=== PATIENT | male | born 1945 | race Caucasian/White ===

== ENCOUNTER 2016-09-13 06:28 | Day surgery (SDC) | payer BC ==
[2016-09-08 17:35] LABS: HEMATOCRIT 45.8 % (40.0-51.0); HEMOGLOBIN 15.6 g/dL (13.6-17.8)
[2016-09-08 17:45] LABS: A/G RATIO 1.2 (0.7-1.9); ALBUMIN 3.8 G/DL (3.5-5.0); BUN (BLOOD UREA NITROGEN) 14 MG/DL (6-23); CALCIUM, SERUM 8.7 MG/DL (8.5-10.4); CHLORIDE, SERUM 104 MMOL/L (96-112); CO2 (CARBON DIOXIDE) 31 MMOL/L (24-34); CREATININE 1.27 MG/DL (0.70-1.30); GFR AFRICAN AMERICAN 66 ML/MIN (>=60); GFR NON AFRICAN AMERICAN 57 ML/MIN (>=60); GLOBULIN 3.3 G/DL (2.5-4.1); GLUCOSE, SERUM 102 MG/DL (60-99); POTASSIUM, SERUM 4.2 MMOL/L (3.5-5.3); SGOT(AST) 19 U/L (5-40); SGPT(ALT) 24 U/L (5-65); SODIUM, SERUM 142 MMOL/L (135-148); TOTAL BILIRUBIN 0.4 MG/DL (0-1.2); TOTAL PROTEIN 7.1 G/DL (6.0-8.5)
[2016-09-08 17:46] LABS: ALKALINE PHOSPHATASE 85 U/L (45-117)
--- NOTE | ~2016-09-13 | OP ---
Record Of Operation [facility] [address] [place]. [address] NAME: ALEXANDRO BELCHER : 49 STATUS : [facility]#: [id number] AGE: 71 ADM/REG DATE : 09/13/16 MR#: [id number] REPORT SERV DATE: 09/13/16 DICTATED BY: OSWALDO REICH DATE: 09/13/16 REPORT STATUS : Draft TRANSCRIBED BY: MODL DATE: 09/13/16 DATE OF PROCEDURE: 09/13/2016 PREOPERATIVE DIAGNOSIS: Indirect left inguinal hernia. POSTOPERATIVE DIAGNOSIS: Indirect left inguinal hernia. PROCEDURE: Laparoscopic reduction and mesh patch repair of indirect left inguinal hernia. SURGEON: Oswaldo Reich M.D. DESCRIPTION OF OPERATIVE PROCEDURE: The patient was brought to the operating suite, placed in the supine position, underwent satisfactory general endotracheal anesthesia without incident. The skin of the abdomen was scrubbed, prepped, and draped in the usual sterile fashion. Marcaine 0.5% with epinephrine was utilized as supplemental local anesthesia. Initially, an infraumbilical incision was performed dissecting through the skin and subcutaneous tissues to the umbilical fascia. Inferolateral retraction of the left exposed the medial aspect of the left anterior rectus sheath which was incised longitudinally in the rectus sheath itself and the rectus muscle itself was identified and retracted exposing the left posterior rectus sheath. A preperitoneal dissection balloon was inserted posterior to the left rectus musculature to the level of the pubic tubercle. It was insufflated under direct camera visualization creating a preperitoneal dissection plane. This balloon was then removed and replaced with a structural balloon and CO2 was insufflated for pressures of 15 mmHg throughout the case. Two additional 5 mm trocars were placed to the infraumbilical midline under direct visualization. Visualization of the right inguinal canal and Hesselbach's triangle revealed no defect. Dissection on the left was successful in skeletonizing the inferior epigastric vessels, Hesselbach's triangle, and the spermatic cord. An indirect defect with protrusion of preperitoneal fat was noted. These were retracted. A Bard 3DMax polypropylene mesh sized large, oriented to the left, was utilized. It was placed in local anesthesia, rolled up and placed in a preperitoneal space. It was unrolled over the inguinal canal covering the Hesselbach's triangle of the inferior epigastric vessels and allowing the cord structures to egress from underneath the lower edge of the mesh. Multiple firings of the 5 mm helical tacker were used to plicate the mesh in position. Hemostasis was assured and the preperitoneal space was allowed to collapse and CO2 was milked from the preperitoneal space. The left anterior rectus sheath was closed with [id number] suture of 0 Vicryl. Subcutaneous tissue closed at all sites with interrupted 4-0 Vicryl, running subcuticular stitch of 4-0 Vicryl for the skin. Dermabond skin adhesive applied. Record Of Operation [facility] [address] [place]. [address] NAME: ALEXANDRO BELCHER : 49 STATUS : [facility]#: [id number] AGE: 71 ADM/REG DATE : 09/13/16 MR#: [id number] REPORT SERV DATE: 09/13/16 DICTATED BY: OSWALDO REICH DATE: 09/13/16 REPORT STATUS : Draft TRANSCRIBED BY: MILIND DATE: 09/13/16 The patient tolerated the procedure well and was returned to the PACU in stable condition. At the termination of the procedure, sponge, needle, lap, and instrument counts were correct x3. ESTIMATED BLOOD LOSS: Less than 10 mL. MIRNA/MILIND Oswaldo Reich M.D. / [id number] CC: Oswaldo Reich M.D.
[~2016-09-13 06:28] MED LIST: ASABAYER PO; B COMPLETE PO; CINNAMON PO; COREG3 PO; ECHINACEA125 MG PO; FISH-EPA1000 MG PO; PLAVIX PO; PRAVACHOL40 MG PO; RYTHMOL225 MG PO; SAW PALMETTO PO; T PO; VITAMIN D3; VITAMIN D31000 UNIT PO
== END 2016-09-13 14:22 | disposition home or self-care (01) ==
LOC: SDC 06:28
PROVIDERS: Specialist
PROC: 0YU64JZ Supplement Left Inguinal Region with Synthetic Substitute, Percutaneous Endoscopic Approach (ICD-10-PCS; principal; 2016-09-13 07:45)
DX: K40.90 Unilateral inguinal hernia, without obstruction or gangrene, not specified as recurrent (principal); I25.10 Atherosclerotic heart disease of native coronary artery without angina pectoris; I25.2 Old myocardial infarction; N40.0 Benign prostatic hyperplasia without lower urinary tract symptoms; I10 Essential (primary) hypertension; M19.90 Unspecified osteoarthritis, unspecified site; Z87.01 Personal history of pneumonia (recurrent); Z86.73 Personal history of transient ischemic attack (TIA), and cerebral infarction without residual deficits; Z95.5 Presence of coronary angioplasty implant and graft; Z98.890 Other specified postprocedural states
CPT/HCPCS: 80053; 85014; 85018; 93005; C1726; C1727; C1781; J0690; J1885; J2250; J2370; J2405; J2710; J3010